=== PATIENT | female | born 1955 | race African-American/Black ===

== ENCOUNTER 2021-07-14 08:51 | Outpatient (CLI) | payer OTHER, SELFPAY | END 2021-07-14 08:52 | disposition home or self-care (01) | LOC: ANHAUDASC 08:54 | PROVIDERS: Visit Provider Otolaryngology | DX: H90.3 Sensorineural hearing loss, bilateral (principal) | CPT/HCPCS: 92557; 92567 ==

== ENCOUNTER 2021-07-28 08:52 | Outpatient (CLI) | payer OTHER, SELFPAY | END 2021-07-28 08:53 | disposition home or self-care (01) | LOC: ANHAUDASC 08:53 | PROVIDERS: Visit Provider Otolaryngology | DX: H90.3 Sensorineural hearing loss, bilateral (principal) | CPT/HCPCS: 92553; 92555 ==

== ENCOUNTER 2021-09-08 08:00 | Outpatient (RCR) | payer OTHER, SELFPAY | END 2021-11-11 23:59 | disposition home or self-care (01) | LOC: ANHAUDASC 08:00 | PROVIDERS: Visit Provider Otolaryngology | DX: Z46.1 Encounter for fitting and adjustment of hearing aid (principal) | CPT/HCPCS: 99199; V5160; V5261 ==